=== PATIENT | female | born 1965 | race Caucasian/White ===

== ENCOUNTER 2016-09-29 11:30 | Observation (INO) | payer BC, MEDICARE ==
[~2016-09-29] VITALS: Ht 157.5 cm; Wt 90.7 kg
[2016-09-29] MEDS ORDERED: MORPHINE 4 MG/ML SYR ONE (13:36)
[2016-09-29] MEDS ORDERED: LORAZEPAM 0.5 MG TAB PO PRN (13:40)
[2016-09-29] MEDS ORDERED: DOCUSATE SOD 100 MG CAP PO PRN (13:40)
[2016-09-29] MEDS ORDERED: TEMAZEPAM 7.5 MG CAP PO PRN (13:40)
[2016-09-29] MEDS ORDERED: NITROGLYCERIN SL 0.4 MG TAB SL PRN (13:40)
[2016-09-29] MEDS ORDERED: ACETAMINOPHEN 325 MG TAB PO PRN (13:40)
[2016-09-29] MEDS ORDERED: ALU/MAG/SIM 30 ML UDC PO PRN (13:40)
[2016-09-29 15:10] VITALS: BP_SYST 136; BP_SYST 152; RESP 18; TEMP 98.4; Ht 157.5 cm; Wt 90.7 kg
[2016-09-29] MEDS: DILTIAZEM CD 120 MG CAP PO SCH (16:01)
[2016-09-29] MEDS: TRAMADOL 50 MG TAB PO PRN (16:06)
[2016-09-29] MEDS ORDERED: TRAMADOL 50 MG TAB PO PRN (17:15)
[2016-09-29] MEDS ORDERED: INSULIN PUMP SUBQ SCH (17:15)
[2016-09-29] MEDS ORDERED: DIAZEPAM 5 MG TAB PO PRN (17:15)
[2016-09-29] MEDS ORDERED: CYANOCOBALAMIN 1000 MCG/ML VIAL IM SCH (17:15)
[2016-09-29 17:46] VITALS: RESP 18
[2016-09-29 20:00] VITALS: BP_SYST 136
[2016-09-29] MEDS: METFORMIN 500 MG TAB PO SCH (21:21)
[2016-09-29] MEDS: ESCITALOPRAM 10 MG TAB PO SCH (21:22)
[2016-09-29] MEDS: METOPROLOL TART 100 MG TAB PO SCH (21:23)
[2016-09-29] MEDS: GABAPENTIN 400 MG CAP PO SCH (21:24)
[2016-09-29] MEDS: PANTOPRAZOLE 40 MG TAB PO SCH (21:25)
[2016-09-29] MEDS: PRAVASTATIN 10 MG TAB PO SCH (21:25)
[2016-09-29] MEDS: TEMAZEPAM 15 MG CAP PO PRN (21:38)
[2016-09-30] VITALS (10 sets, daily range): BP systolic 100–136; RESP 18–20; TEMP 98.1–98.5
[2016-09-30] MEDS ORDERED: DEXTROSE 50% SYRINGE 50 ML IV ONE (07:45)
[2016-09-30] MEDS ORDERED: DEXTROSE 5% SALINE 0.45% 1,000 ML IV ONE (07:45)
[2016-09-30] MEDS: CLOPIDOGREL 75 MG TAB PO SCH (08:51)
[2016-09-30] MEDS: GABAPENTIN 400 MG CAP PO SCH ×3 (08:52→21:12)
[2016-09-30] MEDS: DILTIAZEM CD 120 MG CAP PO SCH (08:52)
[2016-09-30] MEDS: METFORMIN 500 MG TAB PO SCH ×2 (08:52→21:09)
[2016-09-30] MEDS: ASPIRIN 81 MG CHEW TAB PO SCH (08:52)
[2016-09-30] MEDS: METOPROLOL TART 100 MG TAB PO SCH ×2 (08:53→21:12)
[2016-09-30] MEDS ORDERED: ASPIRIN 81 MG CHEW TAB PO SCH (09:00)
[2016-09-30] MEDS: TRAMADOL 50 MG TAB PO PRN (11:35)
[2016-09-30] MEDS: MORPHINE 2 MG/ML SYR IV PRN ×2 (12:01→22:51)
[2016-09-30] MEDS: ONDANSETRON 4 MG VIAL IV PRN ×2 (12:03→22:49)
[2016-09-30] MEDS ORDERED: DEXTROSE 50% 50 ML ONE (12:13)
[2016-09-30] MEDS ORDERED: DEXTROSE 10% IV SCH ×4 (12:20→12:35)
[2016-09-30] MEDS ORDERED: SODIUM CHLORIDE IV SCH ×4 (12:20→12:35)
[2016-09-30] MEDS: ESCITALOPRAM 10 MG TAB PO SCH (21:12)
[2016-09-30] MEDS: PANTOPRAZOLE 40 MG TAB PO SCH (21:13)
[2016-09-30] MEDS: PRAVASTATIN 10 MG TAB PO SCH (21:13)
[2016-09-30] MEDS: TEMAZEPAM 15 MG CAP PO PRN (21:33)
[2016-10-01] VITALS (11 sets, daily range): BP systolic 100–128; RESP 16–18; TEMP 97.6–98.2
[2016-10-01] MEDS ORDERED: FENTANYL 100 MCG/2 ML AMP ONE (07:00)
[2016-10-01] MEDS ORDERED: ONDANSETRON 4 MG VIAL ONE (07:00)
[2016-10-01] MEDS ORDERED: LIDOCAINE 2% 20 ML ONE (07:00)
[2016-10-01] MEDS ORDERED: MIDAZOLAM 2 MG/2 ML INJ ONE (07:00)
[2016-10-01] MEDS: METOPROLOL TART 100 MG TAB PO SCH (09:00)
[2016-10-01] MEDS: METFORMIN 500 MG TAB PO SCH (09:00)
[2016-10-01] MEDS: GABAPENTIN 400 MG CAP PO SCH (09:00)
[2016-10-01] MEDS: CLOPIDOGREL 75 MG TAB PO SCH (09:00)
[2016-10-01] MEDS: DILTIAZEM CD 120 MG CAP PO SCH (09:00)
[2016-10-01] MEDS: ASPIRIN 81 MG CHEW TAB PO SCH (09:01)
[2016-10-01] MEDS ORDERED: LORAZEPAM 0.5 MG TAB PO PRN (09:15)
[2016-10-01] MEDS ORDERED: DIAZEPAM 5 MG TAB PO ONE (09:15)
[2016-10-01] MEDS ORDERED: ACETAMINOPHEN 325 MG TAB PO PRN (09:15)
== END 2016-10-01 13:09 | disposition home or self-care (01) ==
LOC: ENRESERVTM → ENRESERVDT → ER 11:30 → EMR 13:36 → ENPENDDIS 13:36 → PCU2 15:14
PROVIDERS: ADMIT Internal Medicine Cardiovascular Disease; ATTEND Internal Medicine Cardiovascular Disease
DX: R07.9 Chest pain, unspecified (principal); E11.40 Type 2 diabetes mellitus with diabetic neuropathy, unspecified; Z79.4 Long term (current) use of insulin; Z96.41 Presence of insulin pump (external) (internal); E11.649 Type 2 diabetes mellitus with hypoglycemia without coma; Z95.0 Presence of cardiac pacemaker; Z79.01 Long term (current) use of anticoagulants; I10 Essential (primary) hypertension; F41.9 Anxiety disorder, unspecified; F32.9 Major depressive disorder, single episode, unspecified; I25.10 Atherosclerotic heart disease of native coronary artery without angina pectoris; Z95.5 Presence of coronary angioplasty implant and graft
CPT/HCPCS: 71010; 74220; 74246; 80053; 80061; 82550; 82553; 82947; 83735; 84484; 85014; 85018; 85025; 85347; 85610; 85730; 93005; 93458; 93571; 94799; 96374; 96375